=== PATIENT | female | born 1985 | race African-American/Black ===

== ENCOUNTER 2023-09-15 08:42 | Outpatient (CLI) | payer OTHER, SELFPAY | END 2023-09-15 08:43 | disposition home or self-care (01) | PROVIDERS: PCP Internal Medicine; Visit Provider Nurse Practitioner Obstetrics & Gynecology | DX: O20.9 Hemorrhage in early pregnancy, unspecified (principal); Z3A.00 Weeks of gestation of pregnancy not specified | CPT/HCPCS: 36415; 84702 ==

== ENCOUNTER 2023-09-17 07:28 | Outpatient (CLI) | payer OTHER, SELFPAY | END 2023-09-17 07:29 | disposition home or self-care (01) | PROVIDERS: PCP Internal Medicine; Visit Provider Nurse Practitioner Obstetrics & Gynecology | DX: O20.9 Hemorrhage in early pregnancy, unspecified (principal); Z3A.00 Weeks of gestation of pregnancy not specified | CPT/HCPCS: 36415; 84702 ==